=== PATIENT | female | born 1980 | race Caucasian/White ===

== ENCOUNTER 2016-07-07 12:39 | Emergency (ER) | payer MEDICARE ==
[2016-07-07 13:45] LABS: BUN/CREATININE RATIO 29 (0-10)
[2016-07-07 13:46] LABS: HEMOGLOBIN 15.5 gm/dl (12.3-15.3); RED BLOOD COUNT 5.14 M/UL (4.00-5.10); WHITE BLOOD COUNT 10.2 K/UL (4.5-11.0)
== END 2016-07-07 19:25 | disposition home or self-care (01) ==
LOC: ER1 12:39
PROVIDERS: Emergency Medicine
DX: R11.2 Nausea with vomiting, unspecified (principal); R10.10 Upper abdominal pain, unspecified; R19.7 Diarrhea, unspecified; F17.200 Nicotine dependence, unspecified, uncomplicated; Z90.49 Acquired absence of other specified parts of digestive tract
CPT/HCPCS: 36415; 80053; 81001; 82150; 83690; 85025; 96374; 96375; 96376; 99284; J2405; J2550; J7050; Q9962

== ENCOUNTER 2016-08-26 12:58 | Emergency (ER) | payer MEDICARE ==
[2016-08-26 15:14] LABS: HEMOGLOBIN 17.2 gm/dl (12.3-15.3); RED BLOOD COUNT 5.64 M/UL (4.00-5.10); WHITE BLOOD COUNT 8.8 K/UL (4.5-11.0)
[2016-08-26 15:37] LABS: BUN/CREATININE RATIO 29 (0-10)
== END 2016-08-26 17:55 | disposition home or self-care (01) ==
LOC: ER1 12:58
PROVIDERS: Preventive Medicine Occupational Medicine
DX: R10.9 Unspecified abdominal pain (principal); R11.2 Nausea with vomiting, unspecified; F17.210 Nicotine dependence, cigarettes, uncomplicated; Z90.49 Acquired absence of other specified parts of digestive tract
CPT/HCPCS: 36415; 74022; 80053; 81001; 82150; 83605; 83690; 85025; 86140; 87040; 96374; 96375; 99284; C9113; J2550; J7030